=== PATIENT | male | born 1960 | race Caucasian/White ===

== ENCOUNTER 2022-11-27 11:00 | Outpatient (RCR) | payer OTHER, SELFPAY ==
--- NOTE | 2022-10-28 11:44 | PTOPEVAL1 ---
Assessment and note entered by Gordon Rodriguez, PT Evaluation Information Diagnosis Muscle strain, pelvic fascia, tendon strain. Onset about a month ago Subjective Information Patient reports injuring himself potentially at work lifting heavy objects and going up and down a ladder. He was given muscle relaxers and prescription pain medications. He has used all muscle relaxers and does not like how the pain meds made him feel, so now uses IBU and ice packs. Main issue is bending over to tie his shoes. Pain better than initially, but has not been riding his bike or doing his normal exercise routine. Reported Pain Level Pain Score 1: Self Report Assessment PT Clinical Summary Dipesh is a 62 year old male comign into the clinic with a self reported groin pull. Unable to reproduce pain with MMT or range of motion testing . Gave exercises for MARCO ANTONIO LE stretching along with core strengthening and encouraged patient to slowly start doing activities he has held off on for the last month. Recommend continued physical therapy to monitor patient as he gets back to his active lifestyle, to prevent recurrence of injury. Plan of Care Interventions Electrical Stimulation,Gait Training,Hot Pack/Cold Pack,Manual Therapy,Neuro Re-education,Patient/ Caregiver Education,Therapeutic Activities, Therapeutic Exercise,Ultrasound Other Interventions cupping, taping, IASTM PT Services Indicated Yes Treatment Frequency and 1x/wk for 4 weeks Duration These treatments will address the objective and functional deficits as defined above. The patient will be advanced safely and appropriately in order for the patient to progress towards his/her prior level of function. Additional exercises will be introduced and as well as a comprehensive home exercise program upon discharge, if needed, ?to ensure carryover of functional gains achieved in the clinic. This treatment plan has been reviewed and agreement upon by the patient.
--- NOTE | 2022-11-13 09:34 | PCPTNOTE ---
Patient called & cancelled scheduled appointment this date due to his transportation forgot to pick him up.
--- NOTE | 2022-11-27 11:15 | PTOPDC ---
Assessment and note entered by Gordon Rodriguez, PT Evaluation Information Assessment Status Discharge Diagnosis strain of muscle fascia and tendon of pelvis Onset about a month ago Subjective Information Patient reports no more than 1/10 pain and not really pain just soreness very occasionally in the groin and abdomen. Riding his bike up to 40+ miles at a time. Able to tie his shoes and faithfully doing his exercises. Reported Pain Level Pain Score 0: Self Report Additional Pain Score Comments no pain at rest Assessment PT Clinical Summary Dipesh is a 62 year old male coming into the clinic with a diagnosis of strain of muscle fascia and tendon of the pelvis. The patient was evaluated on 10/28/22 and attended 4 sessions. He has met all of his goals besides hamstring tightness in . He is back to his active lifestyle including long rides on his bike. Discharged from skilled physical therapy with his HEP Plan of Care PT Services Indicated No
== END 2022-11-27 15:20 | disposition home or self-care (01) ==
LOC: ANHPT 11:00
PROVIDERS: PCP Family Medicine; Visit Provider Nurse Practitioner Adult Health
DX: S39.013D Strain of muscle, fascia and tendon of pelvis, subsequent encounter (principal)
CPT/HCPCS: 97110; 97161

== ENCOUNTER 2023-04-08 08:48 | Outpatient (CLI) | payer OTHER, SELFPAY ==
--- NOTE | ~2023-04-08 | US_ITS ---
Abdominal Sonogram: Real-time sonographic imaging of the abdomen was performed. Clinical History: Abdominal pain Findings: The liver appears normal with no evidence of solid mass lesion or bile duct dilatation. Sm all hepatic cyst noted. Main portal vein demonstrates normal direction of flow. The spleen is normal in size without evidence of focal lesion. The gallbladder is well distended, and appears normal with no evidence of gallstone or wall thickening. The common bile duct measures 4 mm. The visualized peterson creas, aorta, and IVC are unremarkable. The right kidney measures 12.5 cm in length and the left kid candi measures 11.9 cm. There is no hydronephrosis or renal calculus. Impression: Unremarkable abdominal ultrasound. Reviewed, dictated and finalized at location M. Impression: Unremarkable abdominal ultrasound.
== END 2023-04-08 08:49 | disposition home or self-care (01) ==
PROVIDERS: PCP Family Medicine; Visit Provider Nurse Practitioner Adult Health
DX: R10.9 Unspecified abdominal pain (principal); R53.1 Weakness; R53.83 Other fatigue; I10 Essential (primary) hypertension; M54.50 Low back pain, unspecified
CPT/HCPCS: 76700

== ENCOUNTER 2023-09-08 09:30 | Outpatient (RCR) | payer OTHER, SELFPAY ==
--- NOTE | 2023-07-24 13:26 | PTOPEVAL1 ---
Assessment and note entered by Carl Mohan, PT Evaluation Information Assessment Status Evaluation Diagnosis Lumbar spondylosis, Cervical Spondylosis, Back Pain Onset April 2023 Subjective Information Reports that most pain is local to the neck and back. He has been really tired and is lacking energy at this point. Nothing has shown on blood work at this time. Went to ER in April due to back locking up on him and being unable to stand up straight. Neck and low back are both significantly hurting. Reported Pain Level Pain Score 1: Self Report Assessment PT Clinical Summary Patient presents with signs ans symptoms consistent with spinal arthritis and poor hip disassociation. He appears to demonstrate excitability about education and home exercise to improve. He will benefit from skilled therapy to address pelvic stability and hip mobility coupled with upper back postural training to reduce pain and improve physical performance. Plan of Care Interventions Electrical Stimulation,Gait Training,Manual Therapy,Mechanical Traction,Neuro Re-education, Therapeutic Activities,Therapeutic Exercise PT Services Indicated Yes Treatment Frequency and 2x/week for 10 visits Duration These treatments will address the objective and functional deficits as defined above. The patient will be advanced safely and appropriately in order for the patient to progress towards his/her prior level of function. Additional exercises will be introduced and as well as a comprehensive home exercise program upon discharge, if needed, ?to ensure carryover of functional gains achieved in the clinic. This treatment plan has been reviewed and agreement upon by the patient.
--- NOTE | 2023-07-24 13:28 | OPREHPOC ---
Outpatient Therapy Plan of Care This is a Multidisciplinary Plan of Care that may contain components documented by all disciplines (PT, OT, and ST.) PT Problem 1 PT Problem #1 Knowledge Deficit PT Goal 1 Goal [place] with HEP PT Problem 2 PT Problem #2 Pain PT Goal 1 Goal Report no pain greater than 1/10 with bed transfers and initiation of gait in AM. Target Visit 4 PT Problem 3 PT Problem #3 Impaired Range of Motion PT Goal 1 Goal Improve sadia hamstring 90/90 to -20 degrees to reduce posterior chain pull on pelvis with bending activity Target Visit 10 PT Goal 2 Goal Improve sadia cervical rotation to 60 degrees to improve facet glide and functional range/pain relief Target Visit 10 PT Problem 4 PT Problem #4 Impaired Functional Mobil PT Goal 1 Goal Demonstrate ability to perform 20# squat lift with proper use of hips and knee to avoid excessive spinal flexion Target Visit 10 PT Problem 5 PT Problem #5 Impaired Strength PT Goal 1 Goal Improve sadia hip abduction strength to 4+/5 to improve lateral stability with gait and transfers Target Visit 10
--- NOTE | 2023-09-08 10:30 | PTOPDC ---
Assessment and note entered by Zoya Jamil, PT Discharge Information Assessment Status Discharge Diagnosis Lumbar spondylosis, Cervical Spondylosis, Back Pain Onset April 2023 Subjective Information have been doing all the exercises at home; getting back to bicycling, was able to ride 46 miles over the weekend; have been careful to stretch both before and after riding; Reported Pain Level Pain Score Self Report Additional Pain Score Comments pain range of the past week: neck 0-4/10 and back 4-6/10 increase pain in back when first wake up in AM- stiff and once get moving is better neck pain stiff and doing better decrease pain with exercises for neck and back; use heat/ice for pain; take aleve PRN- once/day at most; Assessment PT Clinical Summary Dipesh has received 10 PT sessions. He has improved with increased strength of trunk and hips, increase flexibility of cervical rotation and hamstrings. Pain has decreased in neck and back. Education completed for HEP. The goals were partially achieved. Discharge PT. He will continue with his HEP and posture correction. Plan of Care PT Services Indicated No
== END 2023-09-08 11:18 | disposition home or self-care (01) ==
LOC: ANHPT 09:30
PROVIDERS: PCP Family Medicine; Visit Provider Physician Assistant
DX: M47.816 Spondylosis without myelopathy or radiculopathy, lumbar region (principal); M47.812 Spondylosis without myelopathy or radiculopathy, cervical region; M54.9 Dorsalgia, unspecified; M54.2 Cervicalgia
CPT/HCPCS: 97012; 97110; 97161; 97530

== ENCOUNTER 2024-03-19 13:05 | Outpatient (CLI) | payer OTHER, SELFPAY ==
--- NOTE | ~2024-03-19 | MR_ITS ---
EXAMINATION: MR cervical spine wo con DATE: 03/19/2024 13:51 INDICATION: Spondylosis without myelopathy or radiculopathy. TECHNIQUE: Magnetic resonance imaging (MRI) of the cervical spine was performed without intravenous c ontrast. COMPARISON: None FINDINGS: Alignment is normal. There is mild chronic anterior wedging of T2 vertebral body. There is mildly decreased disc height at C5-C6 and C6-C7. The spinal cord signal intensity is normal. The foll owing disc levels are specifically discussed: C2-C3: The disc does not extend beyond the endplate margin. There is no uncovertebral joint osteoarth ritis. There is mild left facet joint osteoarthritis. There is no neural foraminal stenosis. There is no central canal stenosis. C3-C4: There is a central protrusion. There is mild right uncovertebral joint osteoarthritis. There i s severe bilateral facet joint osteoarthritis. There is mild bilateral neural foraminal stenosis. The re is no central canal stenosis. C4-C5: The disc is bulging. There is mild bilateral uncovertebral joint osteoarthritis. There is mode rate bilateral facet joint osteoarthritis. There is mild bilateral neural foraminal stenosis. There i s no central canal stenosis. C5-C6: The disc is bulging. There is severe bilateral uncovertebral joint osteoarthritis. There is mi ld bilateral facet joint osteoarthritis. There is mild bilateral neural foraminal stenosis. There is mild central canal stenosis. C6-C7: The disc is bulging. There is severe right and moderate left uncovertebral joint osteoarthriti s. There is no facet joint osteoarthritis. There is mild bilateral neural foraminal stenosis. There i s no central canal stenosis. C7-T1: The disc is bulging. There is no uncovertebral joint osteoarthritis. There is moderate right a nd severe left facet joint osteoarthritis. There is mild bilateral neural foraminal stenosis. There i s no central canal stenosis. IMPRESSION: 1. Mild cervical spondylosis. Reviewed, dictated and finalized at location A.
--- NOTE | ~2024-03-19 | MR_ITS ---
EXAMINATION: MR lumbar spine wo con DATE: 03/19/2024 13:51 INDICATION: Lumbar spondylosis without myelopathy or radiculopathy TECHNIQUE: Magnetic resonance imaging (MRI) of the lumbar spine was performed without intravenous con trast. Sequences included sagittal T2-weighted FSE, sagittal T2-weighted FS FSE, sagittal T1-weighted FSE, and axial T2-weighted FSE. COMPARISON: None FINDINGS: 7 degrees lower lumbar dextrocurvature. There is 3 mm retrolisthesis L3 on L4. There are a few millim eters left lateral listhesis of L1 on L2 and a few millimeter of right lateral listhesis L4 on L5. Th ere is mild anterior wedging at T12 and L1. There are fibrovascular degenerative endplate changes at several levels in the lumbar spine. Marrow signal is otherwise unremarkable. Moderate to severe disc height loss at L4-L5 and with right-sided prominence at L5-S1. Moderate disc height loss at L1-L2 and L3-L4. Mild disc height loss at T11-T12 and T12-L1. The conus medullaris terminates at T12-L1. There is normal signal in the caudal spinal cord. Paravertebral soft tissues are unremarkable. The followi ng disc levels are specifically discussed: L1-L2: Disc is bulging with annular fissure. There is mild bilateral facet joint osteoarthritis. Ther e is mild bilateral neural foraminal stenosis. There is mild central canal stenosis. L2-L3: Disc is minimally bulging. There is mild bilateral facet joint osteoarthritis. There is no reginaldo ral foraminal stenosis. There is no central canal stenosis. L3-L4: Disc is bulging with annular fissure. There is mild bilateral facet joint osteoarthritis. Ther e is mild right and moderate left neural foraminal stenosis. There is mild central canal stenosis inc luding narrowing of the lateral recesses, left greater than right. L4-L5: Disc is bulging with annular fissure. There is mild left and moderate right facet joint osteoa rthritis. There is moderate bilateral neural foraminal stenosis. There is mild central canal stenosis . L5-S1: Disc is bulging with annular fissure. There is mild left and moderate right facet joint osteoa rthritis. There is moderate bilateral neural foraminal stenosis. There is mild central canal stenosis . IMPRESSION: 1. Mild lumbar dextrocurvature with moderate to severe spondylosis Reviewed, dictated and finalized at location B.
== END 2024-03-19 13:06 | disposition home or self-care (01) ==
PROVIDERS: PCP Family Medicine; Visit Provider Neurological Surgery
DX: M47.812 Spondylosis without myelopathy or radiculopathy, cervical region (principal); M47.816 Spondylosis without myelopathy or radiculopathy, lumbar region
CPT/HCPCS: 72141; 72148

== ENCOUNTER 2024-11-01 09:45 | Outpatient (RCR) | payer OTHER, SELFPAY ==
--- NOTE | 2024-08-18 15:25 | OPREHPOC ---
Outpatient Therapy Plan of Care This is a Multidisciplinary Plan of Care that may contain components documented by all disciplines (PT, OT, and ST.) PT Problem 1 PT Problem #1 Knowledge Deficit PT Goal 1 Goal / Goal Update *indep with HEP Target Visit 6 PT Problem 2 PT Problem #2 Pain PT Goal 1 Goal / Goal Update * decrease pain rating to 4/10 at worst, to increase activity tolerance Target Visit 6 PT Problem 3 PT Problem #3 Impaired Flexibility PT Goal 1 Goal / Goal Update *increase hamstring length to decrease pull on lumbar spine and hips supine SLR 1* R 55' 2* L 60' supine piriformis stretch with cross leg, pt report NO tightness of hip 3* R 4*L Target Visit 6
--- NOTE | 2024-08-18 15:26 | PTOPEVAL1 ---
Assessment and note entered by Zoya Jamil, PT Evaluation Information Assessment Status Evaluation ICD-10 Condition Codes (PT) Cervicalgia M54.2,Pain in low back M54.50, Radiculopathy, cervical M54.13,Radiculopathy, lumbar region M54.16 Onset about past year Subjective Information have had gradually more pain in back; MRI report lumbar: retrolisthesis L 3- 4; mild ant wedging T 12-L1; moderate to severe disc height loss lumbar; disc bulging at L 9-8-1-4-5-S1 under care of pain management, after PT, going to talk with dr about injections, ablation have to have 6 PT visits for insurance to approve the injections in the past, have gone to neuro dr, but not lately been to them previous PT helped his neck and back: exercises, stim and traction helped. activity: self employed- bicycle shop repairs; indep with home and self care tasks--more pain with putting on shoes and lifting tasks; with good weather- rides his bicycle for fitness-- at most 4 hours; Reported Pain Level Pain Score Self Report Additional Pain Score Comments pain range in the past week: 2-6/10; stiff and hurts, pressure and tight in back; no radicular pain into LE's but lateral hip pain increase pain: when awaken in AM; lifting and doing more decrease pain: get up, move and stretching, over the counter meds, heat/ice also have chronic neck pain Assessment PT Clinical Summary Jon has the diagnosis of neck and back pain. He reports chronic issues with neck and back pain. He is under the care of pain management and going to have lumbar injections- will start treatment for low back. Self assessment with Oswestry of 32% limitation in activity level. With the evaluation: he has flat lumbar spine; decreased flexibility of bilateral hamstrings; moderate spasms over lumbar area. Skilled PT services are indicated for modalities to decrease pain; therapeutic exercises to increase flexibility of trunk and hips, with education for HEP and body mechanics. Plan of Care Interventions Electrical Stimulation,Hot Pack/Cold Pack,Manual Therapy,Mechanical Traction,Neuro Re-education, Therapeutic Activities,Therapeutic Exercise PT Services Indicated Yes Treatment Frequency and 1-2x/wk for 6 visits Duration These treatments will address the objective and functional deficits as defined above. The patient will be advanced safely and appropriately in order for the patient to progress towards his/her prior level of function. Additional exercises will be introduced and as well as a comprehensive home exercise program upon discharge, if needed, ?to ensure carryover of functional gains achieved in the clinic. This treatment plan has been reviewed and agreement upon by the patient.
--- NOTE | 2024-09-22 09:49 | OPREHPOC ---
Outpatient Therapy Plan of Care This is a Multidisciplinary Plan of Care that may contain components documented by all disciplines (PT, OT, and ST.) PT Problem 1 PT Problem #1 Knowledge Deficit PT Goal 1 Goal / Goal Update *indep with HEP 09-23-24: d/c lumbar treatment/ EVAL cervical pain met goal for lumbar NEW GOAL: * indep with HEP for cervical-thoracic Target Visit 12 PT Problem 2 PT Problem #2 Pain PT Goal 1 Goal / Goal Update * decrease pain rating to 4/10 at worst, to increase activity tolerance *indep with HEP 09-23-24: d/c lumbar treatment/ EVAL cervical pain met goal NEW GOAL: * cervical pain of 3/10 at worst Target Visit 12 PT Problem 3 PT Problem #3 Impaired Flexibility PT Goal 1 Goal / Goal Update *increase hamstring length to decrease pull on lumbar spine and hips supine SLR 1* R 55' 2* L 60' supine piriformis stretch with cross leg, pt report NO tightness of hip 3* R 4*L 09-23-24: d/c lumbar treatment/ EVAL cervical pain met goals NEW GOAL: 1 * cervical rotation to R and L without pain increase 2* cervical rotation to R 70' 3* cervical rotation to L 75' Target Visit 12 PT Problem 4 PT Problem #4 Impaired Strength PT Goal 1 Goal / Goal Update 09-23-24: EVAL cervical pain NEW GOAL: * improve cervical-thoracic strength: pt stand without winging of scapula bilateral
--- NOTE | 2024-09-22 09:49 | PTOPPROG ---
Assessment and note entered by Zoya Jamil, PT Assessment Status d/c BACK/ eval CERVICAL ICD-10 Condition Codes (PT) Cervicalgia M54.2,Pain in low back M54.50, Radiculopathy, cervical M54.13,Radiculopathy, lumbar region M54.16 Onset about past year Subjective Information BACK: is doing better, have been doing the exercises and they help; am doing his usual things, but slower and stiff in his back; NECK: have had PT in the past for his neck-- traction and exercises helped; still doing the neck exercises. want to finish the treatment for my back and start working on my neck; have been staying active, able to ride his bicycle 41 miles yesterday with the nice weather. BACK PAIN: always stiff, always 2/10, not hurting real bad, can do things but stiff; feel better with moving around. NECK PAIN: pain range in the past week: 6-7/10 constant nagging, ache in both sides of neck and into upper traps; decrease pain: hot shower, aleve 1-2/wk, move neck do not have headaches due to neck pain, but have sinus issues and sinus headaches increase pain: cannot think of anything Assessment PT Clinical Summary Jon has received 6 PT sessions. This is the reeval and discharge for back treatment and eval for start of treatment for neck pain. BACK: compared to the initial evaluation: pain rating from 2-6/10 to 2/10; self assessment Oswestry rating from 32 to 26% limitation in activity level; increase flexibility of R and L hamstring and piriformis muscles. Education completed for HEP and body mechanics, posture. The goals were achieved. NECK: pain rating from 6-7/10; self assessment with Neck Index rating of 40% limitation in activity level. He reports tightness with rotation to R and ,with decreased ROM R 60'/ L 65' bilateral UE ROM is WNL and no pain increase; posture with rounded shoulders and cervical lateral bend to L and winging of scapula L > R. Muscle spasms over R and L upper traps. PT treatment is indicated for cervical pain: modalities to decrease pain & spasms, therapeutic exercises to strengthen scapular-thoracic musculature and improve posture, education for HEP Plan of Care Interventions Electrical Stimulation,Hot Pack/Cold Pack,Manual Therapy,Mechanical Traction,Neuro Re-education, Patient/Caregiver Education,Therapeutic Activities ,Therapeutic Exercise,Ultrasound,Other Other Interventions taping PT Services Indicated Yes Treatment Frequency and 1-2x/wk for 6 visits Duration These treatments will address the objective and functional deficits as defined above. The patient will be advanced safely and appropriately in order for the patient to progress towards his/her prior level of function. Additional exercises will be introduced and as well as a comprehensive home exercise program upon discharge, if needed, ?to ensure carryover of functional gains achieved in the clinic. This treatment plan has been reviewed and agreement upon by the patient.
--- NOTE | 2024-11-08 10:01 | PCPTNOTE ---
Canceled PT visit today, reason unknown. AKS
--- NOTE | 2024-11-15 12:39 | PCPTNOTE ---
This treatment is being continued on visit number [id number] Please see documentation on both accounts to view progress. Completed interventions, outcomes, and problems have been marked as Inactive to facilitate the copying of the Care plan routine for recurring accounts.
== END 2024-11-15 10:03 | disposition home or self-care (01) ==
LOC: ANHPT 09:45
PROVIDERS: PCP Family Medicine; Visit Provider Anesthesiology Pain Medicine
DX: M54.2 Cervicalgia (principal); M54.9 Dorsalgia, unspecified; M47.812 Spondylosis without myelopathy or radiculopathy, cervical region; M47.816 Spondylosis without myelopathy or radiculopathy, lumbar region
CPT/HCPCS: 97012; 97110; 97140; 97161; 97530

== ENCOUNTER 2024-11-19 07:46 | Outpatient (RCR) | payer OTHER, SELFPAY ==
--- NOTE | 2024-11-15 12:41 | PCPTNOTE ---
This treatment is being continued from visit number [id number] Please see documentation on both accounts to view progress. Completed interventions, outcomes, and problems have been marked as Inactive to facilitate the copying of the Care plan routine for recurring accounts.
--- NOTE | 2024-11-15 12:41 | PCPTNOTE ---
pt called and canceled today's reeval appt due to transportation issues.
--- NOTE | 2024-11-19 15:10 | OPREHPOC ---
Outpatient Therapy Plan of Care This is a Multidisciplinary Plan of Care that may contain components documented by all disciplines (PT, OT, and ST.) PT Problem 1 PT Problem #1 Knowledge Deficit PT Goal 1 Goal / Goal Update *indep with HEP 09-23-24: d/c lumbar treatment/ EVAL cervical pain met goal for lumbar NEW GOAL: * indep with HEP for cervical-thoracic 11-19-24 d/c goal met Target Visit 12 Progress Met PT Problem 2 PT Problem #2 Pain PT Goal 1 Goal / Goal Update * decrease pain rating to 4/10 at worst, to increase activity tolerance *indep with HEP 09-23-24: d/c lumbar treatment/ EVAL cervical pain met goal NEW GOAL: * cervical pain of 3/10 at worst 11-19-24 d/c goal met Target Visit 12 Progress Met PT Problem 3 PT Problem #3 Impaired Flexibility PT Goal 1 Goal / Goal Update *increase hamstring length to decrease pull on lumbar spine and hips supine SLR 1* R 55' 2* L 60' supine piriformis stretch with cross leg, pt report NO tightness of hip 3* R 4*L 09-23-24: d/c lumbar treatment/ EVAL cervical pain met goals NEW GOAL: 1 * cervical rotation to R and L without pain increase 2* cervical rotation to R 70' 3* cervical rotation to L 75' 11-19-24 d/c goal 1,5 met Target Visit 12 Progress Partially Met PT Problem 4 PT Problem #4 Impaired Strength PT Goal 1 Goal / Goal Update 09-23-24: EVAL cervical pain NEW GOAL: * improve cervical-thoracic strength: pt stand without winging of scapula bilateral 11-19-24 d/c goal met Progress Met
--- NOTE | 2024-11-19 15:11 | PTOPDC ---
Assessment and note entered by Zoya Jamil, PT Assessment Status Discharge ICD-10 Condition Codes (PT) Cervicalgia M54.2,Pain in low back M54.50, Radiculopathy, cervical M54.13,Radiculopathy, lumbar region M54.16 Onset about past year Subjective Information neck is doing good; have been doing the exercises ; Reported Pain Level Pain Score 1: Self Report Additional Pain Score Comments neck has been staying at 1/10; stiff, but better since doing the exercises; Assessment PT Clinical Summary Jon has received a total of 11 visits for back and neck pain. The last session was for cervical treatment. He has improved with cervical pain of 0-1/10; self assessment Neck Index rating of 8% limitation in activity level; increase cervical rotation to L and no pain with cervical and bilateral UE ROM; improved posture and HEP. The goals were partially achieved. Discharge PT services. He is to continue with HEP. Plan of Care PT Services Indicated No
== END 2025-02-09 13:26 | disposition home or self-care (01) ==
LOC: ANHPT 07:46
PROVIDERS: PCP Family Medicine; Visit Provider Anesthesiology Pain Medicine
DX: M54.2 Cervicalgia (principal); M54.9 Dorsalgia, unspecified; M47.812 Spondylosis without myelopathy or radiculopathy, cervical region; M47.816 Spondylosis without myelopathy or radiculopathy, lumbar region
CPT/HCPCS: 97110

== ENCOUNTER 2025-03-22 09:38 | Outpatient (CLI) | payer OTHER, SELFPAY ==
--- NOTE | ~2025-03-22 | XR_ITS ---
XR sinus min 3V 03/22/2025 10:01 Indication: Chronic sinusitis Procedure: 5 views paranasal sinuses Comparison: No prior studies for comparison. Findings: No significant opacification of the paranasal sinuses. No air-fluid levels. Orbits are symmetric. Mastoids are pneumatized. Impression: 1: No significant abnormality of the paranasal sinuses. Reviewed, dictated and finalized at location O. Impression: 1: No significant abnormality of the paranasal sinuses.
--- OUTSIDE RECORDS SUMMARY | 2025-03-22 11:01 | XMS_ITS | Clinical Summary ---
Author Organization [facility] Address [address] [address] Care Team Providers Care Repertoire Manager Name Role Phone Javi Benavides MD Primary Care Provider [phone] Source Comments [facility],non-owned Affiliates and Associated Physician Practices is amultiple site organization consisting of ambulatory clinics and hospital sitesin [place], [place], [place] and [place]. This disclosure is being madepursuant to the Care Everywhere program and may not contain all information available regarding this patient. Last updated 18.[facility] Allergies No known active allergies Medications * Be aware that medications may not be up to date on this document. Alwaysverify current medications with the patient. No known medications Active Problems No known active problems Social History Tobacco Use Types Packs/Day Years Used Date Smoking Tobacco: Former Smokeless Tobacco: Never Alcohol Use Standard Drinks/Week Comments Not Currently 0 (1 standard drink = 0.6 oz pur e alcohol) Sex and Gender Information Value Date Recorded Sex Assigned at Not on file Legal Sex Male 12:18 PM COOK COLD MEAT Gender Identity Not on file Sexual Orientation Not on file Last Filed Vital Signs Vital Sign Reading Time Taken Comments Blood Pressure - - Pulse - - Temperature - - Respiratory Rate - - Oxygen Saturation - - Inhaled Oxygen Concentration - - Weight 87.1 kg (192 lb) 08/17/2021 1:08 PM [employer] COLD MEAT Height 182.9 cm (6') 08/17/2021 1:08 PM COOK COLD MEAT Body Mass Index 26.04 08/17/2021 1:08 PM C[employer] COLD MEAT Plan of Treatment Health Maintenance Due Date Last Done Comments COLOGGUILLERMO (AGES 45-75) - COL ON CA SCREENING 1961 COLON MONITORING 1961 COLONOSCOPY - COLON CA SCREENING 1961 CT COLONOGRAPHY - COLON CA SCREENING 1961 Colorectal Cancer Screening 1961 FIT - COLON CA SCREENING 1961 FLEX SIG - COLON CA SCREENING 1961 LIPID TESTING 1961 HIV SCREENING 02/03/1976 HEPATITIS C SCREENING 01/29/1979 DTAP/TDAP/TD VACCINES (1 - Tdap) 02/03/1980 PNEUMOCOCCAL VACCINE 50+ (1 of 1 - PCV) 2011 ZOSTER VACCINE (1 of 2) 2011 SCREENING FOR DIABETES 08/17/2021 DEPRESSION SCREENING 07/07/2024 COVID-19 VACCINE (1 - 2023-2 5 season) 2025 INFLUENZA VACCINE (#1) 2025 Respiratory Syncytial Virus (RSV) Vaccine Pt: or over 60 yrs (1 - 1-dose 75+ series) 02/03/2036 HEPATITIS B VACCINE Aged Out No longe r eligible based on patient's age to complete this topic HIB VACCINE Aged Out No longer eligi ble based on patient's age to complete this topic HPV VACCINE Aged Out No longer eligi ble based on patient's age to complete this topic MENINGOCOCCAL (Group B) VACC INE SHARED DECISION-MAKING Aged Out No longer eligibl e based on patient's age to complete this topic MENINGOCOCCAL GROUPS A/C/Y/W VACCINE Aged Out No longer eligible b ased on patient's age to complete this topic Insurance [facility] [place] [address] Care Teams Repertoire Manager Relationship Specialty Start Date End Date Javi Benavides MD [address] [place] [address] PCP - General 07/31/21
--- OUTSIDE RECORDS SUMMARY | 2025-03-22 11:01 | XMS_ITS | Encounter Summary ---
Author Organization [facility] Address [address] [place] [address] Phone Care Team Providers Care Recording Studio Set Up Worker Name Role Phone Javi Benavides MD Primary Care Provider [phone] Nora Mock MD Unavailable [phone] Encounter Details Date Type Department Care Team (Late st Contact Info) Description 01/24/2024 Telephone [facility] [address] [place] [address] Nora Mock MD [address] [address] Social History Tobacco Use Types Packs/Day Years Used Date Smoking Tobacco: Never Smokeless Tobacco: Never Sex and Gender Information Value Date Recorded Sex Assigned at Not on file Legal Sex Male 11:09 AM CDT Gender Identity Not on file Sexual Orientation Not on file documented as of this encounter Miscellaneous Notes * Telephone Encounter - Naty Herron - 01/27/2024 2:29 PM CDT Records scanned into media and message sent to Dr. Mock * Telephone Encounter - Naty Herron - 01/26/2024 1:42 PM CDT Requested labs results from Fanny at pcp office. * Telephone Encounter - Nora Mock MD - 01/24/2024 6:02 PM CDT Patient states PSA with primary provider can you please have results sent to me documented in this encounter Plan of Treatment Not on file documented as of this encounter Visit Diagnoses Not on filedocumented in this encounter Care Teams Recording Studio Set Up Worker Relationship Specialty Start Date End Date Javi Benavides MD [address] [address] PCP - General Family Medicine 01/20/24 Nora Mock MD [address] [address] Consulting Physician Urology 01/26/24 documented as of this encounter
--- OUTSIDE RECORDS SUMMARY | 2025-03-22 11:01 | XMS_ITS | Clinical Summary ---
Author Organization [facility] Address [address] [place] [address] Care Team Providers Care Hopper Feeder Name Role Phone Javi Benavides MD Primary Care Provider [phone] Allergies No known active allergies Medications methocarbamol (ROBAXIN) 750 MG Tab Take 1 tablet (750 mg total) by mouth 3 (three) times daily. 40 tablet 3 Active methylPREDNISol one, MARISELA, (MEDROL) 4 MG tablet Take 1 tablet (4 mg total) by mouth daily. Follow package directions 1 each 3 Active Active Problems No known active problems Social History Tobacco Use Types Packs/Day Years Used Date Smoking Tobacco: Never Smokeless Tobacco: Never Tobacco Cessation:Counseling Given: Not Answered Alcohol Use Standard Drinks/Week Comments Not Currently 0 (1 standard drink = 0.6 oz pur e alcohol) PHQ-2 Answer Date Recorded Patient Health Questionnaire-2 Score 0 06/24/2023 Sex and Gender Information Value Date Recorded Sex Assigned at Not on file Legal Sex Male 12:16 PM CDT Gender Identity Not on file Sexual Orientation Not on file Last Filed Vital Signs Vital Sign Reading Time Taken Comments Blood Pressure 129/82 06/24/2023 2:03 PM ACCOUNT SERVICE ASSOCIATE Pulse 76 06/24/2023 2:03 PM ACCOUNT SERVICE ASSOCIATE Temperature 36.7 C (98.1 F) 06/24/2023 2:03 PM ACCOUNT SERVICE ASSOCIATE Respiratory Rate 18 04/30/2023 2:18 PM CDT Oxygen Saturation 97% 06/24/2023 2:03 PM ACCOUNT SERVICE ASSOCIATE Inhaled Oxygen Concentration - - Weight 88.6 kg (195 lb 6.4 oz) 06/24/2023 2:03 P M ACCOUNT SERVICE ASSOCIATE Height 182.9 cm (6') 06/24/2023 2:03 PM ACCOUNT SERVICE ASSOCIATE Body Mass Index 26.5 06/24/2023 2:03 PM ACCOUNT SERVICE ASSOCIATE Plan of Treatment Health Maintenance Due Date Last Done Comments Colorectal Cancer Screening Colonoscopy (10 Years) 1961 Annual Physical 02/03/1964 Hepatitis C 1979 Pneumococcal Vaccine: 50+ Ye ars (1 of 1 - PCV) 2011 Zoster Vaccines (1 of 2) 2011 PHQ-2 (Physician [place]) 07/07/2024 06/24/2023 COVID-19 Vaccine (1 - 2023-2 5 season) 2025 DTaP, Tdap and Td Vaccines ( 2 - Td or Tdap) 03/26/2026 03/26/2016 RSV Immunization or 60+ Years (1 - 1-dose 75+ series) 02/03/2036 Meningococcal B Vaccine Aged Out No l onger eligible based on patient's age to complete this topic Meningococcal Vaccine Aged Out No nabila rachel eligible based on patient's age to complete this topic RSV Immunizations Under 20 Months Aged Out No longer eligible based on patient's age to complete this topic Insurance Care Teams Hopper Feeder Relationship Specialty Start Date End Date Javi Benavides MD [address] [place], [place] [id number] PCP - General FAMILY PRACTICE 06/24/23
--- OUTSIDE RECORDS SUMMARY | 2025-03-22 11:01 | XMS_ITS | Clinical Summary ---
Author Organization [facility] Address [address] [place] [address] Care Team Providers Care School Crossing Guard Name Role Phone Javi Benavides MD Primary Care Provider Nora Mock MD Unavailable [phone] Allergies No known active allergies Medications lisinopril-hydro CHLOROthiazide (PRINZIDE, ZESTORETIC) 20-25 MG Tablet Take 1 Tablet by mouth daily. 12/08/2023 Active Encounters Date Type Department Care Team Description 02/11/2025 2:15 PM CDT Office Visit [facility] [address] [place] [address] Nora Mock MD Benign prostatic hyperplasia without lower urinary tract symptoms (Primary Dx) Discharge Disposition: Discharged to home or Selfcare 02/11/2025 Travel from Last 3 Months Social History Tobacco Use Types Packs/Day Years Used Date Smoking Tobacco: Never Smokeless Tobacco: Never Tobacco Cessation:Counseling Given: Not Answered Sex and Gender Information Value Date Recorded Sex Assigned at Not on file Legal Sex Male 11:09 AM CDT Gender Identity Not on file Sexual Orientation Not on file Last Filed Vital Signs Vital Sign Reading Time Taken Comments Blood Pressure 130/74 02/11/2025 1:50 PM CDT Pulse 65 02/11/2025 1:50 PM CDT Temperature - - Respiratory Rate 18 02/11/2025 1:50 PM CDT Oxygen Saturation 97% 02/11/2025 1:50 PM CDT Inhaled Oxygen Concentration - - Weight 84.8 kg (187 lb) 02/11/2025 1:50 PM CDT Height 182.9 cm (6') 02/11/2025 1:50 PM CDT Body Mass Index 25.36 02/11/2025 1:50 PM CDT Plan of Treatment Health Maintenance Due Date Last Done Comments Hepatitis C Virus (HCV) Screening 1961 Cologuard 2006 Colonoscopy 2006 Colorectal Cancer Screening 2006 Immunochemical Fecal Occult Blood 2006 Pneumococcal Immunization (50+ years) (1 of 1 - PCV) 2011 Zoster Immunization (1 of 2) 2011 PSA Discussion 02/03/2016 Influenza Immunization (#1) 03/07/202504/06, 03/10/2023, 05/06/2022, Additional history exists SARS-COV-2 Immunization ( - 2023- season) 2025 Respiratory Syncytial Virus (RSV) Immunization (Adult) (1 - 1-dose 75+ series) 02/03/2036 DTaP/Tdap/Td Immunization Discontinued 03/26/2016 TdaP Immunization Completed 03/26/2016 Hepatitis B Immunization Aged Out No longer eligible based on patient's age to complete this topic Human Papillomavirus (HPV) Immunization Aged Out No longer eligible based on patient's age to complete this topic Meningococcal Immunization (ACWY) Aged Out No longer eligible based on patient's age to complete this topic Rotavirus Immunization Aged Out No lo nger eligible based on patient's age to complete this topic Procedures Procedure Name Priority Date/Time Associated Diagnosis Comments POCT UA AUTOMATED W/O MICRO Routine 02/11/2025 2:31 PM CDT Benign prostatic hyperplasia without lower urinary tract symptoms SHAHRAM,POST-VOID RES,US,NON-IMAGING Routine 02/11/2025 2:15 PM CDT Benign prostatic hyperplasia without lower urinary tract symptoms from Last 3 Months Results * POCT UA AUTOMATED W/O MICRO (02/11/2025 2:31 PM CDT) POC UA SPECIFIC GRAVITY 1.015 URINE PH 5.0 5.0 - 9.0 POC URINE LEUKOCYTES Negative Negative Alfredito/uL POC URINE NITRITE Negative Negative POC URINE PROTEIN Negative Negative mg/dL POC URINE GLUCOSE Norm Negative, Norm mg/dL POC URINE KETONE Negative Negative mg/dL POC URINE UROBILINOGEN Norm Norm, 0.2 E.U./dL (mg/dL), 1 E.U./dL (mg/dL) POC URINE BILIRUBIN Negative Negative mg/dL POC URINE BLOOD INSTRUMENT Negative Negative Blake/uL POC URINE COLOR Yellow POC URINE CLARITY Clear Urine 02/11/2025 2:31 PM CDT Nora Erwin MD POINT OF CARE TESTING (MANUAL) Final Result * SHAHRAM,POST-VOID RES,US,NON-IMAGING (02/11/2025 2:15 PM CDT) Narrative Lia Geller - 02/11/2025 2:15 PM CDT Lia Geller 02/11/2025 3:48 PM POCT Bladder Scan collected per standing order of Dr. Mock on 02/11/2025 PVR= 0 ML Nora rEwin MD [place] - SURGERY Final Result from Last 3 Months Insurance MEDICAID [facility] [employer] MEDICAID [facility] Care Teams School Crossing Guard Relationship Specialty Start Date End Date Javi Benavides MD [address] [address] PCP - General Family Medicine 01/20/24 [facility] [address] [address] Consulting Physician Urology 01/26/24
== END 2025-03-22 09:39 | disposition home or self-care (01) ==
PROVIDERS: PCP Family Medicine; Visit Provider Nurse Practitioner Family
DX: J32.9 Chronic sinusitis, unspecified (principal)
CPT/HCPCS: 70220